=== PATIENT | male | born 1970 | race Caucasian/White ===

== ENCOUNTER 2018-03-29 07:03 | Inpatient (IN) | payer SELFPAY ==
[2018-03-29] MEDS: SODIUM CHLORIDE 0.9% 1L BAG IV* (07:50)
[2018-03-29] MEDS: ACETAMINOPHEN 325 MG TAB PO (07:51)
[2018-03-29] MEDS: IBUPROFEN 800 MG TAB PO (07:51)
[2018-03-29] MEDS: CEFEPIME 2GM/50 ML (PMX) 50 ML IVPB (07:51)
[2018-03-29 07:57] LABS: ADD MAN DIFF? NO
[2018-03-29 08:11] LABS: ABNORMAL IP MESSAGE 1; HEMATOCRIT 41.7 % (42.0-52.0); HEMOGLOBIN 13.8 g/dl (14.0-18.0); LYMPHOCYTES # 0.4 10^3/ul (0.8-2.9); LYMPHOCYTES % 10.9 % (15.0-51.0); MEAN CORPUSCULAR HEMOGLOBIN 29.9 pg (29.0-33.0); MEAN CORPUSCULAR HGB CONC 33.1 g/dl (32.0-37.0); MEAN CORPUSCULAR VOLUME 90.5 fl (82.0-101.0); MEAN PLATELET VOLUME 10.2 fl (7.4-10.4); MONOCYTE # 0.2 10^3/ul (0.3-0.9); MONOCYTES % 4.5 % (0.0-11.0); PLATELET COUNT 160 10^3/UL (140-415); POSITIVE DIFF @See below; RED BLOOD COUNT 4.61 10^6/ul (4.70-6.10); RED CELL DISTRIBUTION WIDTH 12.2 % (11.5-14.5)
[2018-03-29 08:11] LABS: WHITE BLOOD COUNT 3.6 10^3/ul (4.8-10.8)
[2018-03-29] MEDS: ALBUTEROL 0.5% (NEB) 2.5 MG/0.5 ML AMP NEB (08:13)
[2018-03-29] MEDS: IPRATROPIUM (NEB) 0.5 MG/2.5 ML AMP NEB (08:13)
[2018-03-29 08:34] LABS: ALANINE AMINOTRANSFERASE 81 IU/L (13-69); ALBUMIN 3.6 g/dl (3.3-4.9); ALBUMIN/GLOBULIN RATIO 1.16; ALKALINE PHOSPHATASE 50 IU/L (42-121); AMYLASE 58 U/L (11-123); ANION GAP 9 (5-13); ASPARTATE AMINO TRANSFERASE 146 IU/L (15-46); BILIRUBIN,INDIRECT 0.4 mg/dl (0-1.1); BILIRUBIN,TOTAL 0.4 mg/dl (0.2-1.3); BLOOD UREA NITROGEN 11 mg/dl (7-20); CALCIUM 7.8 mg/dl (8.4-10.2); CARBON DIOXIDE 31 mmol/L (21-31); CHLORIDE 95 mmol/L (97-110); CREATININE 0.69 mg/dl (0.61-1.24); Estimated GFR > 60 mL/min (>60); GLUCOSE 144 mg/dl (70-220); LIPASE 199 U/L (23-300); POTASSIUM 3.7 mmol/L (3.5-5.1); SODIUM 135 mmol/L (135-144); TOTAL PROTEIN 6.7 g/dl (6.1-8.1)
[2018-03-29] MEDS: VANCOMYCIN 1 GM (PMX) 250 ML IVPB (08:35)
[2018-03-29 08:46] LABS: TROPONIN-I 0.036 ng/ml (0.000-0.120)
[2018-03-29 08:47] LABS: INR 1.14; PROTIME 14.8 Sec (11.9-14.9); PT RATIO 1.2
[2018-03-29 08:48] LABS: PARTIAL THROMBOPLASTIN TIME 37.5 Sec (23.0-35.0)
[2018-03-29] MEDS: ONDANSETRON 4 MG INJ IV (09:28)
[2018-03-29] MEDS: morphine 4 MG/ML VIAL IV (09:28)
[2018-03-29] MEDS ORDERED: ACETAMINOPHEN 325 MG TAB PO ×2 (09:30→10:30)
[2018-03-29] MEDS ORDERED: ONDANSETRON 4 MG INJ IV ×2 (09:30→10:30)
[2018-03-29 09:56] LABS: ADD UMIC YES; UR ASCORBIC ACID NEGATIVE (NEGATIVE); UR BILIRUBIN (Dip) NEGATIVE (NEGATIVE); UR BLOOD (Dip) 1+ mg/dL (NEGATIVE); UR CLARITY CLEAR (CLEAR); UR COLOR YELLOW (YELLOW); UR GLUCOSE (Dip) NEGATIVE (NEGATIVE); UR KETONES (Dip) TRACE mg/dL (NEGATIVE); UR LEUKOCYTE ESTERASE (Dip) NEGATIVE Leu/ul (NEGATIVE); UR NITRITE (Dip) NEGATIVE (NEGATIVE); UR RBC 0 /HPF (0-5); UR SPECIFIC GRAVITY (Dip) 1.016 (1.003-1.030); UR TOTAL PROTEIN (Dip) 2+ mg/dl (NEGATIVE); UR UROBILINOGEN (Dip) 1+ mg/dL (NEGATIVE); UR WBC 1 /HPF (0-5)
[2018-03-29] MEDS: SOD CHLORIDE 0.9% 1,000 ML IV ×2 (10:21→23:30)
[2018-03-29] MEDS ORDERED: VANCOMYCIN IV PER PHARMACY XX (10:30)
[2018-03-29] MEDS ORDERED: DOCUSATE SODIUM 100 MG CAP PO (10:30)
[2018-03-29] MEDS ORDERED: NACL 0.9% 3 ML SYG IV (10:30)
[2018-03-29] MEDS ORDERED: HYDROCODONE/APAP (5/325) TAB PO (10:30)
[2018-03-29] MEDS ORDERED: ALBUTEROL/IPRATROPIUM (NEB) 3 ML AMP HHN (10:30)
[2018-03-29 11:36] LABS: LACTIC ACID 1.3 mmol/L (0.5-2.0)
[2018-03-29 12:56] LABS: B-TYPE NATRIURETIC PEPTIDE 785 PG/ML (0-125)
[2018-03-29] MEDS: ALBUTEROL/IPRATROPIUM (NEB) 3 ML AMP HHN ×3 (13:27→19:56)
[2018-03-29] MEDS: GUAIFENESIN/DM (SR) TAB PO ×2 (14:03→21:34)
[2018-03-29 15:39] LABS: CREATINE KINASE 1598 IU/L (23-200)
[2018-03-29 15:49] LABS: CK INDEX 0.4; TROPONIN-I 0.017 ng/ml (0.000-0.120)
[2018-03-29 15:54] LABS: CK-MB 6.27 ng/ml (0.0-2.4)
[2018-03-29] MEDS: VANCOMYCIN 2 GM in SOD CHLORIDE 0.9% 500 ML IVPB (16:43)
[2018-03-29] MEDS: BUDESONIDE (NEB) 0.25 MG/2 ML AMP HHN (19:56)
[2018-03-29 21:27] LABS: CREATINE KINASE 1424 IU/L (23-200)
[2018-03-29] MEDS: FAMOTIDINE 20 MG TAB PO (21:34)
[2018-03-29] MEDS: CEFEPIME 1GM/50 ML (PMX) 50 ML IVPB (21:34)
[2018-03-29 21:40] LABS: CK INDEX 0.5
[2018-03-29 22:03] LABS: AADO2 Arterial 579.1 mmHg (7.0-24.0); Allen Test ACCEPTAB; Arterial Base Excess 3.8 mmol/L (-3.0-3); Arterial Blood Gas Oxygen Sat 93.5 mmHG (95.0-98.0); Arterial COHb 0.6 % (0.0-3.0); Arterial Fraction of Oxyhgb 92.8 % (93.0-99.0); Arterial HCO3 31.9 mmol/L (22.0-26.0); Arterial MetHb 0.1 % (0.0-1.5); MODE MASK - NRB; Site Right Radial
[2018-03-30] MEDS: VANCOMYCIN 2 GM in SOD CHLORIDE 0.9% 500 ML IVPB (00:39)
[2018-03-30] MEDS: ALBUTEROL/IPRATROPIUM (NEB) 3 ML AMP HHN ×6 (01:25→20:14)
[2018-03-30 07:20] LABS: ADD MAN DIFF? NO
[2018-03-30 07:30] LABS: WHITE BLOOD COUNT 7.5 10^3/ul (4.8-10.8)
[2018-03-30 07:30] LABS: BASOPHILS % 0.1 % (0.0-2.0); LYMPHOCYTES # 0.9 10^3/ul (0.8-2.9); MEAN CORPUSCULAR HEMOGLOBIN 29.6 pg (29.0-33.0); MEAN CORPUSCULAR HGB CONC 31.1 g/dl (32.0-37.0); MEAN CORPUSCULAR VOLUME 95.1 fl (82.0-101.0); MEAN PLATELET VOLUME 10.1 fl (7.4-10.4); MONOCYTE # 0.2 10^3/ul (0.3-0.9); MONOCYTES % 3.2 % (0.0-11.0); NEUTROPHIL # 6.3 10^3/ul (1.6-7.5); NEUTROPHILS % 83.8 % (39.0-77.0); PLATELET COUNT 166 10^3/UL (140-415); RED BLOOD COUNT 4.73 10^6/ul (4.70-6.10); RED CELL DISTRIBUTION WIDTH 12.5 % (11.5-14.5)
[2018-03-30 08:04] LABS: HEMOGLOBIN A1C 6.7 % (0-5.9)
[2018-03-30 08:13] LABS: ALANINE AMINOTRANSFERASE 66 IU/L (13-69); ALBUMIN 3.2 g/dl (3.3-4.9); ALBUMIN/GLOBULIN RATIO 1.18; ALKALINE PHOSPHATASE 47 IU/L (42-121); ANION GAP 5 (5-13); ASPARTATE AMINO TRANSFERASE 94 IU/L (15-46); BILIRUBIN,INDIRECT 0.3 mg/dl (0-1.1); BILIRUBIN,TOTAL 0.3 mg/dl (0.2-1.3); BLOOD UREA NITROGEN 9 mg/dl (7-20); CALCIUM 7.6 mg/dl (8.4-10.2); CARBON DIOXIDE 35 mmol/L (21-31); CHLORIDE 99 mmol/L (97-110); CHOL/HDL RATIO 3.7 RATIO; CHOLESTEROL 87 mg/dl (100-200); CREATININE 0.67 mg/dl (0.61-1.24); Estimated GFR > 60 mL/min (>60); GLUCOSE 105 mg/dl (70-220); HDL CHOLESTEROL 23 mg/dl (27-67); LDL CHOLESTEROL,CALCULATED 49 mg/dl; MAGNESIUM 2.1 mg/dl (1.7-2.5); PHOSPHORUS 3.3 mg/dl (2.5-4.9); SODIUM 139 mmol/L (135-144); TOTAL PROTEIN 5.9 g/dl (6.1-8.1); TRIGLYCERIDES 75 mg/dl (0-149)
[2018-03-30] MEDS: BUDESONIDE (NEB) 0.25 MG/2 ML AMP HHN ×2 (08:21→20:14)
[2018-03-30] MEDS: CEFEPIME 1GM/50 ML (PMX) 50 ML IVPB ×2 (10:15→21:31)
[2018-03-30] MEDS: GUAIFENESIN/DM (SR) TAB PO ×2 (10:15→21:30)
[2018-03-30] MEDS: FAMOTIDINE 20 MG TAB PO ×2 (10:15→21:31)
[2018-03-30] MEDS: ENOXAPARIN 40 MG/0.4 ML SYG SC (10:38)
[2018-03-30] MEDS: VANCOMYCIN 1.75 GM in SOD CHLORIDE 0.9% 500 ML IVPB (11:44)
[2018-03-30] MEDS: SOD CHLORIDE 0.9% 1,000 ML IV (13:01)
[2018-03-30] MEDS: FUROSEMIDE 40 MG INJ IV (15:07)
[2018-03-30 19:43] LABS: VANCOMYCIN,TROUGH 20.9 ug/ml (10.0-20.0)
[2018-03-30] MEDS ORDERED: VANCOMYCIN 1.75 GM in SOD CHLORIDE 0.9% 500 ML IVPB (20:00)
[2018-03-30] MEDS: VANCOMYCIN 1.5 GM in SOD CHLORIDE 0.9% 250 ML IVPB (22:34)
[2018-03-31] MEDS: ALBUTEROL/IPRATROPIUM (NEB) 3 ML AMP HHN ×6 (00:39→20:11)
[2018-03-31] MEDS: SOD CHLORIDE 0.9% 1,000 ML IV ×2 (01:23→15:41)
[2018-03-31] MEDS: VANCOMYCIN 1.5 GM in SOD CHLORIDE 0.9% 250 ML IVPB (06:31)
[2018-03-31 07:01] LABS: ADD MAN DIFF? NO
[2018-03-31 07:07] LABS: WHITE BLOOD COUNT 6.8 10^3/ul (4.8-10.8)
[2018-03-31 07:07] LABS: BASOPHILS % 0.3 % (0.0-2.0); HEMOGLOBIN 13.6 g/dl (14.0-18.0); LYMPHOCYTES # 1.3 10^3/ul (0.8-2.9); LYMPHOCYTES % 18.6 % (15.0-51.0); MEAN CORPUSCULAR HEMOGLOBIN 29.9 pg (29.0-33.0); MEAN CORPUSCULAR HGB CONC 31.6 g/dl (32.0-37.0); MEAN CORPUSCULAR VOLUME 94.5 fl (82.0-101.0); MONOCYTE # 0.4 10^3/ul (0.3-0.9); MONOCYTES % 5.7 % (0.0-11.0); NEUTROPHILS % 73.8 % (39.0-77.0); PLATELET COUNT 187 10^3/UL (140-415); POSITIVE DIFF @See below; RED BLOOD COUNT 4.55 10^6/ul (4.70-6.10); RED CELL DISTRIBUTION WIDTH 12.6 % (11.5-14.5)
[2018-03-31 07:32] LABS: ANION GAP 5 (5-13); BLOOD UREA NITROGEN 12 mg/dl (7-20); CALCIUM 8.1 mg/dl (8.4-10.2); CARBON DIOXIDE 37 mmol/L (21-31); CHLORIDE 98 mmol/L (97-110); CREATININE 0.61 mg/dl (0.61-1.24); Estimated GFR > 60 mL/min (>60); GLUCOSE 101 mg/dl (70-220); POTASSIUM 4.1 mmol/L (3.5-5.1); SODIUM 140 mmol/L (135-144)
[2018-03-31 07:57] LABS: ANISOCYTOSIS 1+ (0-0); BAND NEUTROPHILS #M 0.7 10^3/ul (0.0-0.6); BAND NEUTROPHILS % (M) 11 % (0-4); LYMPHOCYTES #M 0.9 10^3/ul (0.8-2.9); LYMPHOCYTES % (M) 14 % (15-51); MONOCYTE #M 0.4 10^3/ul (0.3-0.9); MONOCYTES % (M) 7 % (0-11); PLATELET ESTIMATE NORMAL; POIKILOCYTOSIS 1+ (0-0); POLYCHROMASIA 1+ (0-0); REACTIVE LYMPHOCYTES% (M) 1 % (0-0); SEG NEUT #M 4.6 10^3/ul (1.6-7.5); SEGMENTED NEUTROPHILS (M) % 67 % (39-77); SMUDGE%M 28 % (0-0); TEAR DROP CELLS 1+ (0-0)
[2018-03-31] MEDS: BUDESONIDE (NEB) 0.25 MG/2 ML AMP HHN ×2 (09:00→20:11)
[2018-03-31] MEDS: CEFEPIME 1GM/50 ML (PMX) 50 ML IVPB ×2 (09:00)
[2018-03-31] MEDS: GUAIFENESIN/DM (SR) TAB PO ×2 (09:14→21:37)
[2018-03-31] MEDS: FUROSEMIDE 40 MG TAB PO (09:14)
[2018-03-31] MEDS: LISINOPRIL 5 MG TAB PO (09:15)
[2018-03-31] MEDS: FAMOTIDINE 20 MG TAB PO ×2 (09:15→21:37)
[2018-03-31] MEDS: ENOXAPARIN 40 MG/0.4 ML SYG SC (09:24)
[2018-03-31] MEDS ORDERED: GLUCOSE GEL 15 GRAM TUBE BUCCAL (10:30)
[2018-03-31] MEDS ORDERED: DEXTROSE 50% 50 ML SYRINGE IV ×2 (10:30)
[2018-03-31] MEDS ORDERED: GLUCAGON 1 MG INJ IM (10:30)
[2018-03-31] MEDS ORDERED: GLUCOSE GEL 15 GRAM TUBE PO ×2 (10:30)
[2018-03-31] MEDS: INSULIN ASPART [NOVOLOG] 3 ML PEN SC ×3 (11:50→21:00)
[2018-03-31] MEDS: LEVOFLOXACIN 750 MG TABLET PO (12:00)
[2018-03-31 20:17] LABS: AADO2 Arterial 379.6 mmHg (7.0-24.0); Allen Test ACCEPTAB; Arterial Base Excess 8.1 mmol/L (-3.0-3); Arterial Blood Gas Oxygen Sat 89.2 mmHG (95.0-98.0); Arterial COHb 0.4 % (0.0-3.0); Arterial Fraction of Oxyhgb 88.6 % (93.0-99.0); Arterial MetHb 0.3 % (0.0-1.5); Arterial pCO2 58.1 mmhg (35-45); MODE HFNC; Site Right Radial
[2018-04-01] MEDS: ALBUTEROL/IPRATROPIUM (NEB) 3 ML AMP HHN ×6 (00:40→20:04)
[2018-04-01] MEDS: ACCU-CHEK XX (02:00)
[2018-04-01] MEDS: SOD CHLORIDE 0.9% 1,000 ML IV (05:01)
[2018-04-01] MEDS: LEVOFLOXACIN 750 MG TABLET PO (06:45)
[2018-04-01] MEDS: INSULIN ASPART [NOVOLOG] 3 ML PEN SC ×4 (07:33→21:00)
[2018-04-01 08:11] LABS: ANION GAP 6 (5-13); BLOOD UREA NITROGEN 12 mg/dl (7-20); CALCIUM 8.2 mg/dl (8.4-10.2); CARBON DIOXIDE 37 mmol/L (21-31); CHLORIDE 98 mmol/L (97-110); CREATININE 0.56 mg/dl (0.61-1.24); Estimated GFR > 60 mL/min (>60); GLUCOSE 93 mg/dl (70-220); POTASSIUM 3.7 mmol/L (3.5-5.1); SODIUM 141 mmol/L (135-144)
[2018-04-01] MEDS: BUDESONIDE (NEB) 0.25 MG/2 ML AMP HHN ×2 (08:14→20:05)
[2018-04-01] MEDS: GUAIFENESIN/DM (SR) TAB PO ×2 (08:21→22:12)
[2018-04-01] MEDS: FAMOTIDINE 20 MG TAB PO ×2 (08:22→22:13)
[2018-04-01] MEDS: LISINOPRIL 5 MG TAB PO ×2 (08:22→22:13)
[2018-04-01] MEDS: FUROSEMIDE 40 MG TAB PO (08:23)
[2018-04-01] MEDS: ENOXAPARIN 40 MG/0.4 ML SYG SC (08:27)
[2018-04-01] MEDS: FUROSEMIDE 40 MG INJ IV ×2 (12:20→17:32)
[2018-04-01] MEDS: CEFEPIME 1GM/50 ML (PMX) 50 ML IVPB ×2 (16:15→22:10)
[2018-04-01 17:41] LABS: D-DIMER 8059.48 ng/ml (<460)
[2018-04-02] MEDS: ALBUTEROL/IPRATROPIUM (NEB) 3 ML AMP HHN ×6 (01:48→19:59)
[2018-04-02] MEDS: ACCU-CHEK XX (02:00)
[2018-04-02] MEDS: FUROSEMIDE 40 MG INJ IV ×2 (06:47→17:09)
[2018-04-02 07:28] LABS: HEMATOCRIT 45.8 % (42.0-52.0); HEMOGLOBIN 14.5 g/dl (14.0-18.0); MEAN CORPUSCULAR HEMOGLOBIN 29.4 pg (29.0-33.0); MEAN CORPUSCULAR HGB CONC 31.7 g/dl (32.0-37.0); MEAN CORPUSCULAR VOLUME 92.7 fl (82.0-101.0); MEAN PLATELET VOLUME 9.9 fl (7.4-10.4); PLATELET COUNT 298 10^3/UL (140-415); POSITIVE DIFF @See below; RED BLOOD COUNT 4.94 10^6/ul (4.70-6.10); RED CELL DISTRIBUTION WIDTH 12.4 % (11.5-14.5)
[2018-04-02 07:28] LABS: WHITE BLOOD COUNT 6.8 10^3/ul (4.8-10.8)
[2018-04-02 07:31] LABS: ADD MAN DIFF? YES
[2018-04-02] MEDS: INSULIN ASPART [NOVOLOG] 3 ML PEN SC ×4 (07:55→21:00)
[2018-04-02 07:57] LABS: MAGNESIUM 2.3 mg/dl (1.7-2.5)
[2018-04-02 07:57] LABS: ANION GAP 8 (5-13); BLOOD UREA NITROGEN 15 mg/dl (7-20); CALCIUM 8.7 mg/dl (8.4-10.2); CARBON DIOXIDE 35 mmol/L (21-31); CHLORIDE 99 mmol/L (97-110); Estimated GFR > 60 mL/min (>60); GLUCOSE 119 mg/dl (70-220); POTASSIUM 3.3 mmol/L (3.5-5.1); SODIUM 142 mmol/L (135-144)
[2018-04-02] MEDS: GUAIFENESIN/DM (SR) TAB PO ×2 (08:36→21:34)
[2018-04-02] MEDS: FAMOTIDINE 20 MG TAB PO ×2 (08:37→21:34)
[2018-04-02] MEDS: LISINOPRIL 5 MG TAB PO ×2 (08:37→21:35)
[2018-04-02] MEDS: CEFEPIME 1GM/50 ML (PMX) 50 ML IVPB ×2 (08:39→21:34)
[2018-04-02 08:42] LABS: BAND NEUTROPHILS #M 0.2 10^3/ul (0.0-0.6); BAND NEUTROPHILS % (M) 3 % (0-4); EOSINOPHILS % (M) 2 % (0-7); ERYTHROBLAST% (NRBC) (M) 2 % (0-0); GIANT THROMBO% (M) 1 % (0-0); LYMPHOCYTES #M 1.7 10^3/ul (0.8-2.9); LYMPHOCYTES % (M) 25 % (15-51); MONOCYTE #M 0.3 10^3/ul (0.3-0.9); MONOCYTES % (M) 5 % (0-11); MYELOCYTES #M 0.2 10^3/ul (0.0-0.0); MYELOCYTES % (M) 3 % (0-0); PLASMA CELLS #M 0.2 10^3/ul (0.0-0.0); PLASMAC%(M) 3 % (0); PLATELET ESTIMATE NORMAL; REACTIVE LYMPHOCYTES #M 0.2 10^3/ul (0.0-0.0); REACTIVE LYMPHOCYTES% (M) 3 % (0-0); SEG NEUT #M 3.8 10^3/ul (1.6-7.5); SEGMENTED NEUTROPHILS (M) % 56 % (39-77); SMUDGE%M 6 % (0-0)
[2018-04-02] MEDS: ENOXAPARIN 40 MG/0.4 ML SYG SC (08:45)
[2018-04-02] MEDS: POTASSIUM CHLORIDE (SR) 20 MEQ TAB PO (09:45)
[2018-04-02] MEDS: BUDESONIDE (NEB) 0.25 MG/2 ML AMP HHN ×2 (09:48→20:00)
[2018-04-02 15:03] LABS: AMPHETAMINE/METHAMPHETAMINE Negative (NEGATIVE); BARBITURATES Negative (NEGATIVE); BENZODIAZEPINES Negative (NEGATIVE); CANNABINOIDS Negative (NEGATIVE); COCAINE Negative (NEGATIVE); OPIATES Negative (NEGATIVE)
[2018-04-03] MEDS: ALBUTEROL/IPRATROPIUM (NEB) 3 ML AMP HHN ×6 (00:52→20:00)
[2018-04-03] MEDS: ACCU-CHEK XX (02:00)
[2018-04-03] MEDS: FUROSEMIDE 40 MG INJ IV ×2 (05:07→18:23)
[2018-04-03 06:44] LABS: ALBUMIN 3.7 g/dl (3.3-4.9); ANION GAP 9 (5-13); BLOOD UREA NITROGEN 18 mg/dl (7-20); CALCIUM 8.9 mg/dl (8.4-10.2); CARBON DIOXIDE 33 mmol/L (21-31); CHLORIDE 99 mmol/L (97-110); CREATININE 0.84 mg/dl (0.61-1.24); GLUCOSE 106 mg/dl (70-220); MAGNESIUM 2.4 mg/dl (1.7-2.5); PHOSPHORUS 5.3 mg/dl (2.5-4.9); POTASSIUM 3.6 mmol/L (3.5-5.1); SODIUM 141 mmol/L (135-144)
[2018-04-03] MEDS: INSULIN ASPART [NOVOLOG] 3 ML PEN SC ×4 (07:54→20:36)
[2018-04-03] MEDS: BUDESONIDE (NEB) 0.25 MG/2 ML AMP HHN ×2 (08:09→20:00)
[2018-04-03] MEDS: FAMOTIDINE 20 MG TAB PO ×2 (09:24→20:34)
[2018-04-03] MEDS: GUAIFENESIN/DM (SR) TAB PO ×2 (09:24→20:34)
[2018-04-03] MEDS: CEFEPIME 1GM/50 ML (PMX) 50 ML IVPB ×2 (09:24→20:34)
[2018-04-03] MEDS: ENOXAPARIN 40 MG/0.4 ML SYG SC (09:34)
[2018-04-03] MEDS: LISINOPRIL 5 MG TAB PO ×2 (11:52→20:34)
[2018-04-03] MEDS: LEVOFLOXACIN 750MG/D5W (PMX) 150 ML IVPB (12:56)
[2018-04-03] MEDS: POTASSIUM CHLORIDE (SR) 20 MEQ TAB PO (14:17)
[2018-04-03] MEDS: OSELTAMIVIR 75 MG CAP PO ×2 (14:17→20:47)
[2018-04-03] MEDS: BUMETANIDE 3 MG in DEXTROSE 5% 18 ML IV (15:52)
[2018-04-04] MEDS: ALBUTEROL/IPRATROPIUM (NEB) 3 ML AMP HHN ×6 (01:07→21:23)
[2018-04-04] MEDS: ACCU-CHEK XX (02:00)
[2018-04-04] MEDS: FUROSEMIDE 40 MG INJ IV ×2 (06:01→17:40)
[2018-04-04 06:27] LABS: ABNORMAL IP MESSAGE 1; HEMATOCRIT 48.2 % (42.0-52.0); HEMOGLOBIN 15.3 g/dl (14.0-18.0); MEAN CORPUSCULAR HEMOGLOBIN 29.1 pg (29.0-33.0); MEAN CORPUSCULAR HGB CONC 31.7 g/dl (32.0-37.0); MEAN CORPUSCULAR VOLUME 91.8 fl (82.0-101.0); MEAN PLATELET VOLUME 9.8 fl (7.4-10.4); NUCLEATED RED BLOOD CELLS% 0.3 /100WBC (0.0-0.0); PLATELET COUNT 385 10^3/UL (140-415); POSITIVE DIFF @See below; RED BLOOD COUNT 5.25 10^6/ul (4.70-6.10); RED CELL DISTRIBUTION WIDTH 12.5 % (11.5-14.5)
[2018-04-04 06:27] LABS: WHITE BLOOD COUNT 8.7 10^3/ul (4.8-10.8)
[2018-04-04 06:29] LABS: ADD MAN DIFF? YES
[2018-04-04 07:02] LABS: ALBUMIN 3.6 g/dl (3.3-4.9); ANION GAP 9 (5-13); BLOOD UREA NITROGEN 20 mg/dl (7-20); CARBON DIOXIDE 31 mmol/L (21-31); CHLORIDE 102 mmol/L (97-110); GLUCOSE 101 mg/dl (70-220); MAGNESIUM 2.3 mg/dl (1.7-2.5); PHOSPHORUS 5.4 mg/dl (2.5-4.9); SODIUM 142 mmol/L (135-144)
[2018-04-04 07:40] LABS: POTASSIUM 3.8 mmol/L (3.5-5.1)
[2018-04-04] MEDS: INSULIN ASPART [NOVOLOG] 3 ML PEN SC ×4 (07:55→21:00)
[2018-04-04] MEDS: BUDESONIDE (NEB) 0.25 MG/2 ML AMP HHN ×2 (08:11→20:00)
[2018-04-04 08:38] LABS: ANISOCYTOSIS 1+ (0-0); BAND NEUTROPHILS #M 0.2 10^3/ul (0.0-0.6); BAND NEUTROPHILS % (M) 3 % (0-4); EOSINOPHILS % (M) 4 % (0-7); LYMPHOCYTES #M 2.4 10^3/ul (0.8-2.9); LYMPHOCYTES % (M) 28 % (15-51); METAMYELOCYTES #M 0.1 10^3/ul (0.0-0.0); METAMYELOCYTES %M 2 % (0-0); MONOCYTE #M 0.8 10^3/ul (0.3-0.9); MONOCYTES % (M) 10 % (0-11); MYELOCYTES #M 0.4 10^3/ul (0.0-0.0); MYELOCYTES % (M) 5 % (0-0); PLATELET ESTIMATE NORMAL; POLYCHROMASIA 1+ (0-0); PROMYELOCYTES % (M) 1 % (0-0); SEG NEUT #M 4.1 10^3/ul (1.6-7.5); SEGMENTED NEUTROPHILS (M) % 47 % (39-77); SMUDGE%M 5 % (0-0)
[2018-04-04] MEDS: GUAIFENESIN/DM (SR) TAB PO ×2 (08:58→21:37)
[2018-04-04] MEDS: CEFEPIME 1GM/50 ML (PMX) 50 ML IVPB ×2 (08:58→21:36)
[2018-04-04] MEDS: FAMOTIDINE 20 MG TAB PO ×2 (08:58→21:38)
[2018-04-04] MEDS: LISINOPRIL 5 MG TAB PO ×2 (08:59→21:38)
[2018-04-04] MEDS: OSELTAMIVIR 75 MG CAP PO ×2 (08:59→21:37)
[2018-04-04] MEDS: ENOXAPARIN 40 MG/0.4 ML SYG SC (09:23)
[2018-04-04] MEDS: LEVOFLOXACIN 750MG/D5W (PMX) 150 ML IVPB (12:55)
[2018-04-05] MEDS: ALBUTEROL/IPRATROPIUM (NEB) 3 ML AMP HHN ×6 (01:19→20:09)
[2018-04-05] MEDS: ACCU-CHEK XX (02:00)
[2018-04-05 06:28] LABS: ADD MAN DIFF? NO
[2018-04-05 06:39] LABS: ABNORMAL IP MESSAGE 1; BASOPHIL # 0.1 10^3/ul (0.0-0.1); BASOPHILS % 0.7 % (0.0-2.0); EOSINOPHILS # 0.3 10^3/ul (0.0-0.5); EOSINOPHILS % 3.3 % (0.0-7.0); HEMATOCRIT 44.2 % (42.0-52.0); HEMOGLOBIN 14.1 g/dl (14.0-18.0); LYMPHOCYTES # 2.1 10^3/ul (0.8-2.9); LYMPHOCYTES % 23.8 % (15.0-51.0); MEAN CORPUSCULAR HEMOGLOBIN 29.3 pg (29.0-33.0); MEAN CORPUSCULAR HGB CONC 31.9 g/dl (32.0-37.0); MEAN CORPUSCULAR VOLUME 91.9 fl (82.0-101.0); MONOCYTE # 1.3 10^3/ul (0.3-0.9); MONOCYTES % 14.4 % (0.0-11.0); NEUTROPHIL # 4.4 10^3/ul (1.6-7.5); NEUTROPHILS % 50.5 % (39.0-77.0); PLATELET COUNT 367 10^3/UL (140-415); POSITIVE DIFF @See below; RED BLOOD COUNT 4.81 10^6/ul (4.70-6.10); RED CELL DISTRIBUTION WIDTH 12.6 % (11.5-14.5)
[2018-04-05 06:39] LABS: WHITE BLOOD COUNT 8.8 10^3/ul (4.8-10.8)
[2018-04-05 07:18] LABS: ANION GAP 7 (5-13); BLOOD UREA NITROGEN 22 mg/dl (7-20); CALCIUM 8.8 mg/dl (8.4-10.2); CARBON DIOXIDE 33 mmol/L (21-31); CHLORIDE 98 mmol/L (97-110); CREATININE 0.93 mg/dl (0.61-1.24); Estimated GFR > 60 mL/min (>60); GLUCOSE 105 mg/dl (70-220); MAGNESIUM 2.4 mg/dl (1.7-2.5); PHOSPHORUS 4.7 mg/dl (2.5-4.9); POTASSIUM 3.8 mmol/L (3.5-5.1); SODIUM 138 mmol/L (135-144)
[2018-04-05] MEDS: INSULIN ASPART [NOVOLOG] 3 ML PEN SC ×4 (07:55→21:00)
[2018-04-05] MEDS: BUDESONIDE (NEB) 0.25 MG/2 ML AMP HHN ×2 (08:05→20:09)
[2018-04-05] MEDS: CEFEPIME 1GM/50 ML (PMX) 50 ML IVPB ×2 (08:19→20:47)
[2018-04-05] MEDS: FAMOTIDINE 20 MG TAB PO ×2 (08:20→20:48)
[2018-04-05] MEDS: FUROSEMIDE 40 MG TAB PO (08:20)
[2018-04-05] MEDS: OSELTAMIVIR 75 MG CAP PO ×2 (08:20→20:47)
[2018-04-05] MEDS: GUAIFENESIN/DM (SR) TAB PO ×2 (08:20→20:47)
[2018-04-05] MEDS: LISINOPRIL 5 MG TAB PO (08:21)
[2018-04-05] MEDS: ENOXAPARIN 40 MG/0.4 ML SYG SC (08:35)
[2018-04-05 08:51] LABS: BAND NEUTROPHILS #M 0.4 10^3/ul (0.0-0.6); BAND NEUTROPHILS % (M) 5 % (0-4); BASOPHILS % (M) 1 % (0-2); EOSINOPHILS % (M) 2 % (0-7); GIANT THROMBO% (M) 2 % (0-0); LYMPHOCYTES #M 1.6 10^3/ul (0.8-2.9); LYMPHOCYTES % (M) 19 % (15-51); METAMYELOCYTES #M 0.1 10^3/ul (0.0-0.0); METAMYELOCYTES %M 2 % (0-0); MONOCYTE #M 0.5 10^3/ul (0.3-0.9); MONOCYTES % (M) 6 % (0-11); MYELOCYTES #M 0.2 10^3/ul (0.0-0.0); MYELOCYTES % (M) 3 % (0-0); PLATELET ESTIMATE NORMAL; POLYCHROMASIA 2+ (0-0); SEG NEUT #M 5.5 10^3/ul (1.6-7.5); SEGMENTED NEUTROPHILS (M) % 62 % (39-77); SMUDGE%M 3 % (0-0)
[2018-04-06] MEDS: ALBUTEROL/IPRATROPIUM (NEB) 3 ML AMP HHN ×5 (01:10→21:24)
[2018-04-06] MEDS: ACCU-CHEK XX (02:00)
[2018-04-06] MEDS: INSULIN ASPART [NOVOLOG] 3 ML PEN SC ×4 (07:32→21:00)
[2018-04-06] MEDS: BUDESONIDE (NEB) 0.25 MG/2 ML AMP HHN ×2 (08:09→21:24)
[2018-04-06] MEDS: OSELTAMIVIR 75 MG CAP PO (08:27)
[2018-04-06] MEDS: FUROSEMIDE 40 MG TAB PO (08:27)
[2018-04-06] MEDS: FAMOTIDINE 20 MG TAB PO ×2 (08:28→20:53)
[2018-04-06] MEDS: GUAIFENESIN/DM (SR) TAB PO ×2 (08:28→20:53)
[2018-04-06] MEDS: CEFEPIME 1GM/50 ML (PMX) 50 ML IVPB ×2 (08:28→20:53)
[2018-04-06] MEDS: LISINOPRIL 5 MG TAB PO (08:29)
[2018-04-06] MEDS: ENOXAPARIN 40 MG/0.4 ML SYG SC (08:46)
[2018-04-07] MEDS: ALBUTEROL/IPRATROPIUM (NEB) 3 ML AMP HHN ×6 (00:53→20:27)
[2018-04-07] MEDS: ACCU-CHEK XX ×2 (02:00→23:42)
[2018-04-07 06:45] LABS: ADD MAN DIFF? NO
[2018-04-07 06:57] LABS: WHITE BLOOD COUNT 6.5 10^3/ul (4.8-10.8)
[2018-04-07 06:57] LABS: BASOPHILS % 0.6 % (0.0-2.0); EOSINOPHILS # 0.2 10^3/ul (0.0-0.5); EOSINOPHILS % 3.1 % (0.0-7.0); HEMATOCRIT 42.7 % (42.0-52.0); HEMOGLOBIN 13.6 g/dl (14.0-18.0); LYMPHOCYTES # 1.9 10^3/ul (0.8-2.9); LYMPHOCYTES % 29.9 % (15.0-51.0); MEAN CORPUSCULAR HEMOGLOBIN 29.3 pg (29.0-33.0); MEAN CORPUSCULAR HGB CONC 31.9 g/dl (32.0-37.0); MEAN PLATELET VOLUME 10.2 fl (7.4-10.4); MONOCYTE # 0.9 10^3/ul (0.3-0.9); MONOCYTES % 14.2 % (0.0-11.0); NEUTROPHIL # 3.1 10^3/ul (1.6-7.5); NEUTROPHILS % 47.9 % (39.0-77.0); PLATELET COUNT 334 10^3/UL (140-415); RED BLOOD COUNT 4.64 10^6/ul (4.70-6.10); RED CELL DISTRIBUTION WIDTH 12.3 % (11.5-14.5)
[2018-04-07 07:28] LABS: ANION GAP 9 (5-13); BLOOD UREA NITROGEN 18 mg/dl (7-20); CALCIUM 8.8 mg/dl (8.4-10.2); CARBON DIOXIDE 31 mmol/L (21-31); CHLORIDE 101 mmol/L (97-110); Estimated GFR > 60 mL/min (>60); GLUCOSE 96 mg/dl (70-220); MAGNESIUM 2.5 mg/dl (1.7-2.5); PHOSPHORUS 4.1 mg/dl (2.5-4.9); POTASSIUM 3.9 mmol/L (3.5-5.1); SODIUM 141 mmol/L (135-144)
[2018-04-07] MEDS: INSULIN ASPART [NOVOLOG] 3 ML PEN SC ×4 (08:00→21:00)
[2018-04-07] MEDS: CEFEPIME 1GM/50 ML (PMX) 50 ML IVPB ×2 (08:29→21:07)
[2018-04-07] MEDS: GUAIFENESIN/DM (SR) TAB PO ×2 (08:30→21:00)
[2018-04-07] MEDS: FUROSEMIDE 40 MG TAB PO (08:30)
[2018-04-07] MEDS: FAMOTIDINE 20 MG TAB PO ×2 (08:30→21:07)
[2018-04-07] MEDS: LISINOPRIL 5 MG TAB PO (08:33)
[2018-04-07] MEDS: ENOXAPARIN 40 MG/0.4 ML SYG SC (08:51)
[2018-04-07] MEDS: BUDESONIDE (NEB) 0.25 MG/2 ML AMP HHN ×2 (09:12→20:27)
[2018-04-08] MEDS: ALBUTEROL/IPRATROPIUM (NEB) 3 ML AMP HHN ×4 (00:51→13:00)
[2018-04-08 05:43] LABS: ADD MAN DIFF? NO
[2018-04-08 05:46] LABS: WHITE BLOOD COUNT 6.2 10^3/ul (4.8-10.8)
[2018-04-08 05:46] LABS: BASOPHIL # 0.1 10^3/ul (0.0-0.1); BASOPHILS % 0.8 % (0.0-2.0); EOSINOPHILS # 0.2 10^3/ul (0.0-0.5); EOSINOPHILS % 3.2 % (0.0-7.0); HEMOGLOBIN 13.1 g/dl (14.0-18.0); LYMPHOCYTES # 2.2 10^3/ul (0.8-2.9); LYMPHOCYTES % 35.2 % (15.0-51.0); MEAN CORPUSCULAR HEMOGLOBIN 29.4 pg (29.0-33.0); MEAN CORPUSCULAR VOLUME 92.1 fl (82.0-101.0); MEAN PLATELET VOLUME 10.3 fl (7.4-10.4); MONOCYTES % 15.4 % (0.0-11.0); NEUTROPHIL # 2.7 10^3/ul (1.6-7.5); NEUTROPHILS % 43.1 % (39.0-77.0); PLATELET COUNT 305 10^3/UL (140-415); RED BLOOD COUNT 4.45 10^6/ul (4.70-6.10); RED CELL DISTRIBUTION WIDTH 12.3 % (11.5-14.5)
[2018-04-08 06:24] LABS: ANION GAP 8 (5-13); BLOOD UREA NITROGEN 17 mg/dl (7-20); CALCIUM 8.7 mg/dl (8.4-10.2); CARBON DIOXIDE 29 mmol/L (21-31); CHLORIDE 103 mmol/L (97-110); CREATININE 0.71 mg/dl (0.61-1.24); Estimated GFR > 60 mL/min (>60); GLUCOSE 98 mg/dl (70-220); MAGNESIUM 2.4 mg/dl (1.7-2.5); PHOSPHORUS 4.1 mg/dl (2.5-4.9); POTASSIUM 4.2 mmol/L (3.5-5.1); SODIUM 140 mmol/L (135-144)
[2018-04-08] MEDS: INSULIN ASPART [NOVOLOG] 3 ML PEN SC (08:00)
[2018-04-08] MEDS: LISINOPRIL 5 MG TAB PO (08:41)
[2018-04-08] MEDS: FAMOTIDINE 20 MG TAB PO (08:41)
[2018-04-08] MEDS: CEFEPIME 1GM/50 ML (PMX) 50 ML IVPB (08:41)
[2018-04-08] MEDS: GUAIFENESIN/DM (SR) TAB PO (08:41)
[2018-04-08] MEDS: FUROSEMIDE 40 MG TAB PO (08:41)
[2018-04-08] MEDS: BUDESONIDE (NEB) 0.25 MG/2 ML AMP HHN (09:00)
[2018-04-08] MEDS: ENOXAPARIN 40 MG/0.4 ML SYG SC (09:26)
[2018-04-08] MEDS: LEVOFLOXACIN 750 MG TABLET PO (14:20)
== END 2018-04-08 15:15 | disposition home or self-care (01) | DRG 871 ==
LOC: 2NE 04-06 15:45 → E/R 07:03 → TEL 09:28
DX: A41.9 Sepsis, unspecified organism (principal); J18.9 Pneumonia, unspecified organism; J96.01 Acute respiratory failure with hypoxia; I50.21 Acute systolic (congestive) heart failure; Z68.41 Body mass index [BMI] 40.0-44.9, adult; I42.8 Other cardiomyopathies; E11.9 Type 2 diabetes mellitus without complications; K76.0 Fatty (change of) liver, not elsewhere classified; E66.9 Obesity, unspecified; K80.20 Calculus of gallbladder without cholecystitis without obstruction; F14.11 Cocaine abuse, in remission
CPT/HCPCS: 36415; 36600; 71045; 71250; 76705; 80048; 80053; 80061; 80069; 80202; 80307; 81001; 82150; 82550; 82553; 82803; 82962; 83036; 83605; 83690; 83735; 83880; 84100; 84484; 85025; 85378; 85610; 85730; 87040; 87086; 87400; 90686; 93005; 93306; 93970; 94640; 94644; 94660; 96365; 96375; 99285-25